=== PATIENT | female | born 1960 | race Caucasian/White ===

== ENCOUNTER 2018-12-15 08:05 | Outpatient (RCR) | payer OTHER | END 2018-12-27 | LOC: M PT 08:05 | PROVIDERS: ATTEND Orthopaedic Surgery Sports Medicine | DX: Z51.89 Encounter for other specified aftercare (principal); M25.571 Pain in right ankle and joints of right foot; R22.41 Localized swelling, mass and lump, right lower limb ==

== ENCOUNTER 2019-01-25 15:14 | Outpatient (RCR) | payer OTHER | END 2019-01-27 | LOC: M PT 15:14 | PROVIDERS: ATTEND Orthopaedic Surgery Sports Medicine | DX: I89.0 Lymphedema, not elsewhere classified (principal) ==

== ENCOUNTER → 2019-02-26 | Outpatient (RCR) | payer OTHER | LOC: M PT 01-30 11:43 | PROVIDERS: ATTEND Orthopaedic Surgery Sports Medicine | DX: Z51.89 Encounter for other specified aftercare (principal); I89.0 Lymphedema, not elsewhere classified ==

== ENCOUNTER 2019-03-28 08:53 | Outpatient (RCR) | payer OTHER | END 2019-03-29 | LOC: M PT 08:53 | PROVIDERS: ATTEND Orthopaedic Surgery Sports Medicine | DX: Z51.89 Encounter for other specified aftercare (principal); I89.0 Lymphedema, not elsewhere classified ==

== ENCOUNTER 2019-04-23 09:01 | Outpatient (RCR) | payer OTHER | END 2019-04-28 | LOC: M PT 09:01 | PROVIDERS: ATTEND Orthopaedic Surgery Sports Medicine | DX: Z51.89 Encounter for other specified aftercare (principal); I89.0 Lymphedema, not elsewhere classified; S82.91XA Unspecified fracture of right lower leg, initial encounter for closed fracture; M25.571 Pain in right ankle and joints of right foot; R60.0 Localized edema; X58.XXXA Exposure to other specified factors, initial encounter; Y92.9 Unspecified place or not applicable; Y93.9 Activity, unspecified; Y99.9 Unspecified external cause status ==

== ENCOUNTER → 2019-05-02 | Outpatient (CLI) | payer OTHER ==
--- NOTE | 2019-05-02 09:36 | REP ---
Clinical: Screening for abdominal aortic aneurysm Technique: Real time yancey scale ultrasound examination using curved array transducer. Findings: The abdominal aorta is normal by sonographic evaluation without significant atherosclerotic changes and no evidence for aneurysm. Proximal aorta: 2.6 x 3.1 cm Aorta and renal arteries: 1.8 x 2.4 cm Mid aorta: 2.0 x 2.2 cm Distal aorta: 2.0 x 2.0 cm Right common iliac artery: 0.9 x 1.4 cm Left common iliac artery: 1.0 x 1.5 cm Impression: Normal abdominal aorta. No aneurysm. Electronically Signed by Huang Cole MD 05/02/2019 09:27 A
== END ==
LOC: M RAD 07:28
PROVIDERS: ATTEND Internal Medicine
DX: Z82.49 Family history of ischemic heart disease and other diseases of the circulatory system (principal)

== ENCOUNTER 2019-05-24 08:12 | Outpatient (RCR) | payer OTHER | END 2019-05-29 | LOC: M PT 08:12 | PROVIDERS: ATTEND Orthopaedic Surgery Sports Medicine | DX: Z47.89 Encounter for other orthopedic aftercare (principal); S82.91XA Unspecified fracture of right lower leg, initial encounter for closed fracture; R60.0 Localized edema; M25.571 Pain in right ankle and joints of right foot; X58.XXXA Exposure to other specified factors, initial encounter; Y92.9 Unspecified place or not applicable; Y93.9 Activity, unspecified; Y99.9 Unspecified external cause status ==

== ENCOUNTER 2019-06-18 09:12 | Outpatient (RCR) | payer OTHER | END 2019-06-29 | LOC: M PT 09:12 | PROVIDERS: ATTEND Orthopaedic Surgery Sports Medicine | DX: S82.891D Other fracture of right lower leg, subsequent encounter for closed fracture with routine healing (principal); M25.571 Pain in right ankle and joints of right foot; M79.89 Other specified soft tissue disorders ==

== ENCOUNTER → 2021-06-29 | Outpatient (RCR) | payer MEDICARE, OTHER | LOC: M PT 06-18 11:12 | PROVIDERS: ATTEND Internal Medicine | DX: I89.0 Lymphedema, not elsewhere classified (principal); I87.2 Venous insufficiency (chronic) (peripheral); M79.89 Other specified soft tissue disorders ==

== ENCOUNTER 2021-07-15 08:30 | Outpatient (RCR) | payer MEDICARE, OTHER | END 2021-07-27 | LOC: M PT 08:30 | PROVIDERS: ATTEND Internal Medicine | DX: I89.0 Lymphedema, not elsewhere classified (principal); I87.2 Venous insufficiency (chronic) (peripheral); M79.89 Other specified soft tissue disorders ==

== ENCOUNTER → 2023-01-18 | Outpatient (CLI) | payer MEDICARE, OTHER ==
[~2023-01-18] MED LIST: LIDOCAINE 1% MDV 20ML VIAL As Ordered ONE
[2023-01-18 12:20] VITALS: BP 121/53; TEMP 98.2; O2SAT 93
== END ==
LOC: M IRPRO 12:09
PROVIDERS: ATTEND Surgery
DX: M86.9 Osteomyelitis, unspecified (principal)
CPT/HCPCS: 36569; C1751

== ENCOUNTER → 2023-01-30 | Outpatient (REF) | payer MEDICARE, OTHER ==
[2023-01-30 13:52] LABS: HEMATOCRIT 31.1 % (36.0-47.0); HEMOGLOBIN 9.5 g/dl (12.0-15.5); MEAN CORPUSCULAR HEMOGLOBIN 26.2 pg (27.0-33.0); MEAN CORPUSCULAR HGB CONC 30.5 g/dl (32.0-36.5); MEAN CORPUSCULAR VOLUME 85.7 fl (80.0-96.0); PLATELET COUNT, AUTOMATED 127 10^3/uL (150-450); RED BLOOD COUNT 3.63 10^6/uL (4.00-5.40); WHITE BLOOD COUNT 4.6 10^3/uL (4.0-10.0)
[2023-01-30 14:11] LABS: ERYTHROCYTE SEDIMENTATION RATE 64 mm/hr (0-30)
[2023-01-30 14:24] LABS: ALBUMIN 3.3 G/DL (3.2-5.2); BILIRUBIN,TOTAL 0.4 MG/DL (0.3-1.2); CALCIUM LEVEL 8.9 MG/DL (8.3-10.6); CREATININE FOR GFR 1.11 MG/DL (0.55-1.30); POTASSIUM SERUM 4.8 MMOL/L (3.5-5.1); TOTAL PROTEIN 7.2 G/DL (5.7-8.2)
== END ==
LOC: M LAB REF 12:45
PROVIDERS: ATTEND Surgery
DX: A41.9 Sepsis, unspecified organism (principal); L03.115 Cellulitis of right lower limb

== ENCOUNTER → 2023-03-22 | Outpatient (REF) | payer MEDICARE, OTHER ==
[~2023-03-22] MED LIST changes: +ATOR40TA75 PO; +BANO25TA PO; +CEFE2INJ2 IV; +CEFE2INJ5 IV; +CETI-24 PO; +CIPR250T3 PO; +DILT1CAP46 PO; +ELIQ5TAB PO; +FURO40TA2 PO; +HYDR200T46 PO; +IRBE300T7 PO; +LEXA1TAB PO; -LIDOCAINE 1% MDV 20ML VIAL As Ordered ONE; +MAGN400T2 PO; +OXYC1TAB23 PO; +XARE20TA PO; +ZYVO1TAB PO
[2023-03-22 18:28] LABS: PERCENT SATURATION 11.4 % (13.2-45.0)
[2023-03-22 18:30] LABS: FERRITIN 104.1 NG/ML (7.3-270.7)
== END ==
LOC: M LAB REF 16:59
PROVIDERS: ATTEND Internal Medicine Nephrology
DX: E61.1 Iron deficiency (principal); R82.81 Pyuria

== ENCOUNTER 2023-09-07 14:44 | Inpatient (IN) | payer MEDICARE, OTHER ==
[2023-09-07] VITALS (17 sets, daily range): BP systolic 69–98; BP diastolic 40–69; TEMP 100.8–102.8; O2SAT 91–96
[~2023-09-07] VITALS: Ht 170.2 cm; Wt 161.5 kg
[~2023-09-07 14:44] MED LIST changes: +IRBE300T25 PO; -IRBE300T7 PO
[2023-09-07] MEDS ORDERED: ISOVUE-370 76% 100ML VIAL As Ordered ONE (15:24)
[2023-09-07] MEDS: ACETAMINOPHEN 500 MG TAB PO ONE (15:24)
[2023-09-07 15:32] LABS: BASO % 0.3 % (0.0-1.0); HEMATOCRIT 35.7 % (36.0-47.0); HEMOGLOBIN 11.2 g/dl (12.0-15.5); LYMPH # 0.4 10^3/uL (1.5-5.0); LYMPH % 4.1 % (24.0-44.0); MEAN CORPUSCULAR HGB CONC 31.4 g/dl (32.0-36.5); MONO # 0.3 10^3/uL (0.0-0.8); MONO % 3.5 % (2.0-8.0); NEUTROPHILS # 8.6 10^3/uL (1.5-8.5); NEUTROPHILS % 91.4 % (36.0-66.0); PLATELET COUNT, AUTOMATED 128 10^3/uL (150-450); WHITE BLOOD COUNT 9.4 10^3/uL (4.0-10.0)
[2023-09-07 15:40] LABS: INR 1.38; PARTIAL THROMBOPLASTIN TIME 30.9 SECONDS (24.8-34.2); PROTHROMBIN TIME 16.6 SECONDS (12.5-14.5)
[2023-09-07 15:50] LABS: ETHYL ALCOHOL (ETHANOL) 0.005 % (0.000-0.010)
[2023-09-07 15:52] LABS: ALBUMIN 3.4 G/DL (3.2-5.2); ALKALINE PHOSPHATASE 72 U/L (46-116); ALT/SGPT 13 U/L (7.0-40); AST/SGOT 28 U/L (<34); BILIRUBIN,DIRECT 0.2 MG/DL (<0.4); BILIRUBIN,TOTAL 0.7 MG/DL (0.3-1.2); BLOOD UREA NITROGEN 33 MG/DL (9-23); CALCIUM LEVEL 8.4 MG/DL (8.3-10.6); CARBON DIOXIDE LEVEL 25 MMOL/L (20-31); CHLORIDE LEVEL 107 MMOL/L (98-107); CREATININE FOR GFR 1.22 MG/DL (0.55-1.30); GLOMERULAR FILTRATION RATE 47.4 (>45); GLUCOSE, FASTING 116 MG/DL (74-106); MAGNESIUM LEVEL 2.1 MG/DL (1.8-2.4); POTASSIUM SERUM 4.6 MMOL/L (3.5-5.1); SALICYLATE LEVEL < 3.0 MG/DL (<30); SODIUM LEVEL 144 MMOL/L (136-145); TOTAL PROTEIN 7.4 G/DL (5.7-8.2)
[2023-09-07 15:54] LABS: THYROID STIMULATING HORMONE 1.617 uIU/ML (0.55-4.78)
[2023-09-07 16:02] LABS: ABG BASE EXCESS -0.5 (-2.0-2.0); ABG HCO3 22.1 MMOL/L (22.0-26.0); ABG O2 SATURATION 95.2 % (95.0-99.0); ABG PARTIAL PRESSURE O2 75.6 mmHg (75.0-100.0); ABG pH (ARTERIAL) 7.485 UNITS (7.350-7.450)
[2023-09-07] MEDS: cefTRIAXone SOD 2 GM in D5W MINI-BAG PLUS 50 ML IV ONE (16:10)
[2023-09-07] MEDS: NS IV ONE (16:10)
[2023-09-07] MEDS: LIDOCAINE 2% 5ML JELLY UROJET TOP ONE (16:55)
[2023-09-07 18:02] LABS: AMPHETAMINES LEVEL URINE NEGATIVE (NEGATIVE); BARBITURATES URINE NEGATIVE (NEGATIVE); BENZODIAZEPINES URINE NEGATIVE (NEGATIVE); CANNABINOIDS URINE NEGATIVE (NEGATIVE); COCAINE METABOLITE URINE NEGATIVE (NEGATIVE); METHADONE URINE NEGATIVE (NEGATIVE); OPIATES URINE NEGATIVE (NEGATIVE); PHENCYCLIDINE URINE NEGATIVE (NEGATIVE)
[2023-09-07] MEDS ORDERED: FURO20TA2 PO (18:03)
[2023-09-07] MEDS ORDERED: MAGN400T2 PO (18:03)
[2023-09-07] MEDS ORDERED: ELIQ5TAB PO (18:03)
[2023-09-07] MEDS ORDERED: GABA-282 PO (18:03)
[2023-09-07] MEDS ORDERED: HOME MED LIST COMPLETE! XX SCH (18:20)
[2023-09-07] MEDS: APIXABAN 5 MG TAB (ELIQUIS) PO SCH (20:30)
[2023-09-07] MEDS: GABAPENTIN 300 MG CAP PO SCH (20:30)
[2023-09-07] MEDS: MAGNESIUM OXIDE 400MG TAB (MAG-OX) PO SCH (20:30)
[2023-09-07] MEDS ORDERED: ENOXAPARIN 40MG/0.4ML SYRINGE (J1650 PER 10MG) SC SCH (21:00)
[2023-09-07] MEDS: NYSTATIN 100,000 UNITS/GM TOPICAL PWD 15GM TOP SCH (21:00)
[2023-09-07] MEDS: ACETAMINOPHEN TAB 650MG DOSE (2X325MG) PO PRN (21:09)
[2023-09-07] MEDS: NOREPINEPHRINE 4MG IN D5 250ML 4 MG in IV 1 EA IV SCH (22:57)
[2023-09-08] VITALS (79 sets, daily range): BP systolic 69–141; BP diastolic 40–87; TEMP 100.2–102.9; O2SAT 91–99
[2023-09-08 04:42] LABS: BASO % 0.2 % (0.0-1.0); HEMATOCRIT 31.1 % (36.0-47.0); HEMOGLOBIN 9.6 g/dl (12.0-15.5); LYMPH # 0.4 10^3/uL (1.5-5.0); LYMPH % 4.4 % (24.0-44.0); MEAN CORPUSCULAR HEMOGLOBIN 25.8 pg (27.0-33.0); MEAN CORPUSCULAR HGB CONC 30.9 g/dl (32.0-36.5); MEAN CORPUSCULAR VOLUME 83.6 fl (80.0-96.0); MONO # 0.4 10^3/uL (0.0-0.8); MONO % 3.7 % (2.0-8.0); NEUTROPHILS # 8.5 10^3/uL (1.5-8.5); NEUTROPHILS % 91.1 % (36.0-66.0); PLATELET COUNT, AUTOMATED 129 10^3/uL (150-450); RED BLOOD COUNT 3.72 10^6/uL (4.00-5.40); WHITE BLOOD COUNT 9.3 10^3/uL (4.0-10.0)
[2023-09-08 05:07] LABS: ALBUMIN 2.8 G/DL (3.2-5.2); BILIRUBIN,TOTAL 0.6 MG/DL (0.3-1.2); CALCIUM LEVEL 7.5 MG/DL (8.3-10.6); CREATININE FOR GFR 1.17 MG/DL (0.55-1.30); GLOMERULAR FILTRATION RATE 49.7 (>45); POTASSIUM SERUM 3.9 MMOL/L (3.5-5.1); TOTAL PROTEIN 6.5 G/DL (5.7-8.2)
[2023-09-08] MEDS: FUROSEMIDE 20 MG TAB PO SCH (07:53)
[2023-09-08] MEDS: ATORVASTATIN 20 MG TAB PO SCH (07:53)
[2023-09-08] MEDS: PANTOPRAZOLE 40MG VIAL IV SCH (07:54)
[2023-09-08] MEDS: dilTIAZem **CD** 180MG CAP PO SCH (08:39)
[2023-09-08] MEDS: NS 1,000 ML IV SCH (11:16)
[2023-09-08] MEDS ORDERED: cefTRIAXone SOD 1 GM in D5W MINI-BAG PLUS 50 ML IV SCH (18:00)
[2023-09-08] MEDS: PIPERACILLIN/TAZOBACTAM SOD 4.5 GM in D5W MINI-BAG PLUS 50 ML IV SCH (18:24)
[2023-09-09] VITALS (62 sets, daily range): BP systolic 72–139; BP diastolic 48–76; TEMP 99–102; O2SAT 89–100
[2023-09-09] MEDS: LR 1,000 ML IV SCH ×2 (04:47→09:27)
[2023-09-09 05:20] LABS: BASO % 0.4 % (0.0-1.0); EOS # 0.2 10^3/uL (0.0-0.5); HEMATOCRIT 28.6 % (36.0-47.0); HEMOGLOBIN 9.1 g/dl (12.0-15.5); LYMPH # 0.6 10^3/uL (1.5-5.0); LYMPH % 7.4 % (24.0-44.0); MEAN CORPUSCULAR HEMOGLOBIN 26.1 pg (27.0-33.0); MEAN CORPUSCULAR HGB CONC 31.8 g/dl (32.0-36.5); MEAN CORPUSCULAR VOLUME 81.9 fl (80.0-96.0); MONO # 0.5 10^3/uL (0.0-0.8); MONO % 6.1 % (2.0-8.0); NEUTROPHILS # 6.6 10^3/uL (1.5-8.5); NEUTROPHILS % 83.2 % (36.0-66.0); PLATELET COUNT, AUTOMATED 143 10^3/uL (150-450); RED BLOOD COUNT 3.49 10^6/uL (4.00-5.40); WHITE BLOOD COUNT 7.9 10^3/uL (4.0-10.0)
[2023-09-09 05:47] LABS: CALCIUM LEVEL 7.7 MG/DL (8.3-10.6); CREATININE FOR GFR 1.05 MG/DL (0.55-1.30); GLOMERULAR FILTRATION RATE 56.3 (>45); POTASSIUM SERUM 4.1 MMOL/L (3.5-5.1)
[2023-09-09] MEDS ORDERED: FLUID PLACE HOLDER IV SCH (20:25)
[2023-09-09] MEDS ORDERED: VANCOMYCIN HCL IV SCH (20:25)
[2023-09-09] MEDS: NS 1,000 ML IV SCH (20:30)
[2023-09-09] MEDS: VANCOMYCIN HCL 1,000 MG, VIAL MATE ADAPTER 1 EACH in D5W 250 ML IV ONE (21:07)
[2023-09-09] MEDS: VANCOMYCIN HCL 1,000 MG, VIAL MATE ADAPTER 1 EACH in D5W 250 ML IV SCH (22:27)
[2023-09-10] VITALS (50 sets, daily range): BP systolic 74–112; BP diastolic 50–81; TEMP 97.4–100.2; O2SAT 92–97
[2023-09-10 05:43] LABS: ALBUMIN 2.1 G/DL (3.2-5.2); ALKALINE PHOSPHATASE 65 U/L (46-116); ALT/SGPT < 9 U/L (7.0-40); AST/SGOT 21 U/L (<34); BILIRUBIN,TOTAL 0.4 MG/DL (0.3-1.2); BLOOD UREA NITROGEN 24 MG/DL (9-23); CALCIUM LEVEL 7.9 MG/DL (8.3-10.6); CARBON DIOXIDE LEVEL 22 MMOL/L (20-31); CHLORIDE LEVEL 106 MMOL/L (98-107); CREATININE FOR GFR 1.03 MG/DL (0.55-1.30); GLOMERULAR FILTRATION RATE 57.6 (>45); GLUCOSE, FASTING 146 MG/DL (74-106); POTASSIUM SERUM 3.9 MMOL/L (3.5-5.1); SODIUM LEVEL 137 MMOL/L (136-145); TOTAL PROTEIN 5.9 G/DL (5.7-8.2)
[2023-09-11] VITALS (14 sets, daily range): BP systolic 81–143; BP diastolic 47–77; TEMP 97.6–100; O2SAT 91–98
[2023-09-11 06:06] LABS: VANCOMYCIN LEVEL TROUGH 23.8 UG/ML (10.0-20.0)
[2023-09-11 07:18] LABS: BASO % 0.3 % (0.0-1.0); EOS # 0.6 10^3/uL (0.0-0.5); HEMATOCRIT 27.8 % (36.0-47.0); HEMOGLOBIN 8.5 g/dl (12.0-15.5); LYMPH % 15.7 % (24.0-44.0); MEAN CORPUSCULAR HEMOGLOBIN 25.8 pg (27.0-33.0); MEAN CORPUSCULAR HGB CONC 30.6 g/dl (32.0-36.5); MEAN CORPUSCULAR VOLUME 84.5 fl (80.0-96.0); MONO # 0.8 10^3/uL (0.0-0.8); MONO % 11.9 % (2.0-8.0); NEUTROPHILS # 3.9 10^3/uL (1.5-8.5); NEUTROPHILS % 62.5 % (36.0-66.0); PLATELET COUNT, AUTOMATED 175 10^3/uL (150-450); RED BLOOD COUNT 3.29 10^6/uL (4.00-5.40); WHITE BLOOD COUNT 6.3 10^3/uL (4.0-10.0)
[2023-09-11 07:26] LABS: CALCIUM LEVEL 7.5 MG/DL (8.3-10.6); CREATININE FOR GFR 1.22 MG/DL (0.55-1.30); GLOMERULAR FILTRATION RATE 47.4 (>45); MAGNESIUM LEVEL 1.9 MG/DL (1.8-2.4); POTASSIUM SERUM 3.8 MMOL/L (3.5-5.1)
[2023-09-11] MEDS ORDERED: VANCOMYCIN HCL 1,000 MG, VIAL MATE ADAPTER 1 EACH in D5W 250 ML IV SCH (18:00)
[2023-09-12] VITALS (8 sets, daily range): BP systolic 86–136; BP diastolic 51–69; TEMP 97.9–99.7; O2SAT 95–98
[2023-09-12 05:09] LABS: CALCIUM LEVEL 7.5 MG/DL (8.3-10.6); CREATININE FOR GFR 1.14 MG/DL (0.55-1.30); GLOMERULAR FILTRATION RATE 51.2 (>45); MAGNESIUM LEVEL 1.9 MG/DL (1.8-2.4); POTASSIUM SERUM 3.4 MMOL/L (3.5-5.1)
[2023-09-12] MEDS: PANTOPRAZOLE 40MG TAB (PROTONIX) PO SCH (08:09)
[2023-09-12] MEDS: VANCOMYCIN HCL 1,000 MG, VIAL MATE ADAPTER 1 EACH in D5W 250 ML IV SCH (08:10)
[2023-09-12] MEDS: KCL 10MEQ/100ML SWI (KRUN) 10 MEQ in IV 1 EA IV SCH (21:30)
[2023-09-13 04:17] VITALS: BP 103/59; TEMP 99.1; O2SAT 93
[2023-09-13 06:03] LABS: CALCIUM LEVEL 8.1 MG/DL (8.3-10.6); CREATININE FOR GFR 1.14 MG/DL (0.55-1.30); GLOMERULAR FILTRATION RATE 51.2 (>45); MAGNESIUM LEVEL 1.9 MG/DL (1.8-2.4); POTASSIUM SERUM 3.4 MMOL/L (3.5-5.1)
[2023-09-13 07:42] VITALS: BP 127/69; TEMP 98.2; O2SAT 94
[2023-09-13] MEDS ORDERED: BACT800T5 PO (09:26)
[2023-09-13] MEDS ORDERED: BACI1CAP PO (09:26)
[2023-09-13 10:11] LABS: HEMATOCRIT 30.8 % (36.0-47.0); HEMOGLOBIN 9.4 g/dl (12.0-15.5)
[2023-09-13 10:29] LABS: PERCENT SATURATION 6.3 % (13.2-45.0)
[2023-09-13 10:33] LABS: FERRITIN 210.3 NG/ML (7.3-270.7)
[2023-09-13] MEDS: MAG SULF 1GM/100ML (MAG RUN) 1 GM in IV 1 EA IV ONE (10:34)
[2023-09-13 10:35] VITALS: BP 127/69
[2023-09-13] MEDS: POTASSIUM CHLORIDE 10MEQ SR TABLET PO ONE (10:36)
[2023-09-13 10:38] LABS: PROCALCITONIN 0.6 ng/ml
== END 2023-09-13 13:29 | disposition home or self-care (01) | DRG 853 ==
LOC: M ED 14:44 → M ED INP 18:34 → ENRESERV 19:19 → M ICU 20:05 → M PCU 09-12 15:28
PROVIDERS: ADMIT Internal Medicine Pulmonary Disease; ATTEND General Practice
PROC: 0YB90ZZ Excision of Right Lower Extremity, Open Approach (ICD-10-PCS; principal; 2023-09-08)
DX: A41.9 Sepsis, unspecified organism (principal); G93.41 Metabolic encephalopathy; R65.21 Severe sepsis with septic shock; N39.0 Urinary tract infection, site not specified; Z68.43 Body mass index [BMI] 50.0-59.9, adult; E87.20 Acidosis, unspecified; L97.419 Non-pressure chronic ulcer of right heel and midfoot with unspecified severity; M32.9 Systemic lupus erythematosus, unspecified; I89.0 Lymphedema, not elsewhere classified; I10 Essential (primary) hypertension; E78.5 Hyperlipidemia, unspecified; B96.20 Unspecified Escherichia coli [E. coli] as the cause of diseases classified elsewhere; E66.01 Morbid (severe) obesity due to excess calories; E87.6 Hypokalemia; Z86.73 Personal history of transient ischemic attack (TIA), and cerebral infarction without residual deficits; Z86.718 Personal history of other venous thrombosis and embolism; I87.8 Other specified disorders of veins; Z88.8 Allergy status to other drugs, medicaments and biological substances; Z79.899 Other long term (current) drug therapy; Z79.01 Long term (current) use of anticoagulants; Z89.422 Acquired absence of other left toe(s)

== ENCOUNTER 2023-11-02 15:11 | Inpatient (IN) | payer MEDICARE, OTHER ==
[~2023-11-02] VITALS: Ht 167.6 cm; Wt 164.4 kg
[~2023-11-02 15:11] MED LIST changes: +BACI1CAP PO; +BACT800T5 PO; -DILT1CAP46 PO; +DILT360C22 PO; +FURO20TA2 PO; +GABA-282 PO
[2023-11-02] MEDS ORDERED: VANCOMYCIN HCL 2,000 MG in D5W 500 ML IV ONE (15:45)
[2023-11-02] MEDS: NS IV STA (15:52)
[2023-11-02] MEDS: ACETAMINOPHEN 650MG SUPP PR ONE (15:52)
[2023-11-02] MEDS: PIPERACILLIN/TAZOBACTAM SOD 4.5 GM in D5W MINI-BAG PLUS 50 ML IV ONE (15:52)
[2023-11-02 16:03] LABS: ALBUMIN 2.8 G/DL (3.2-5.2); ALKALINE PHOSPHATASE 73 U/L (46-116); ALT/SGPT < 9 U/L (7.0-40); AMYLASE 34 U/L (30-118); AST/SGOT 15 U/L (<34); BILIRUBIN,DIRECT 0.3 MG/DL (<0.4); BILIRUBIN,TOTAL 0.7 MG/DL (0.3-1.2); BLOOD UREA NITROGEN 24 MG/DL (9-23); CALCIUM LEVEL 8.1 MG/DL (8.3-10.6); CARBON DIOXIDE LEVEL 26 MMOL/L (20-31); CHLORIDE LEVEL 107 MMOL/L (98-107); CREATININE FOR GFR 1.15 MG/DL (0.55-1.30); GLOMERULAR FILTRATION RATE 50.7 (>45); GLUCOSE, FASTING 133 MG/DL (74-106); SODIUM LEVEL 140 MMOL/L (136-145); TOTAL PROTEIN 7.4 G/DL (5.7-8.2)
[2023-11-02 16:05] LABS: BASO % 0.2 % (0.0-1.0); HEMATOCRIT 29.5 % (36.0-47.0); HEMOGLOBIN 8.8 g/dl (12.0-15.5); LYMPH # 0.3 10^3/uL (1.5-5.0); LYMPH % 2.5 % (24.0-44.0); MEAN CORPUSCULAR HEMOGLOBIN 25.2 pg (27.0-33.0); MEAN CORPUSCULAR HGB CONC 29.8 g/dl (32.0-36.5); MEAN CORPUSCULAR VOLUME 84.5 fl (80.0-96.0); MONO # 0.4 10^3/uL (0.0-0.8); MONO % 3.2 % (2.0-8.0); NEUTROPHILS # 11.8 10^3/uL (1.5-8.5); NEUTROPHILS % 93.5 % (36.0-66.0); PLATELET COUNT, AUTOMATED 173 10^3/uL (150-450); RED BLOOD COUNT 3.49 10^6/uL (4.00-5.40); WHITE BLOOD COUNT 12.7 10^3/uL (4.0-10.0)
[2023-11-02 16:10] LABS: PROCALCITONIN 2.87 ng/ml
[2023-11-02 16:16] LABS: INR 1.49; PARTIAL THROMBOPLASTIN TIME 35.5 SECONDS (24.8-34.2); PROTHROMBIN TIME 17.6 SECONDS (12.5-14.5)
[2023-11-02 16:22] LABS: ABG HCO3 22.3 MMOL/L (22.0-26.0); ABG O2 SATURATION 92.6 % (95.0-99.0); ABG PARTIAL PRESSURE CO2 32.2 mmHg (35.0-45.0); ABG PARTIAL PRESSURE O2 64.9 mmHg (75.0-100.0); ABG STANDARD HCO3 23.6 MMOL/L. (22.0-26.0); ABG TOTAL CO2 23.3 MMOL/L (23.0-31.0); ABG pH (ARTERIAL) 7.459 UNITS (7.350-7.450)
[2023-11-02] MEDS: NS IV ONE (16:25)
[2023-11-02 16:29] LABS: APPEARANCE, URINE HAZY (CLEAR); BACTERIA, URINE AUTO 3+ (NEGATIVE); BILIRUBIN, URINE AUTO NEGATIVE (NEGATIVE); BLOOD, URINE BLOOD 1+ (NEGATIVE); COLOR, URINE YELLOW (YELLOW); GLUCOSE, URINE (UA) AUTO NEGATIVE (NEGATIVE); KETONE, URINE AUTO NEGATIVE (NEGATIVE); LEUKOCYTE ESTERASE, URINE AUTO 2+ (NEGATIVE); NITRITE, URINE AUTO NEGATIVE (NEGATIVE); PROTEIN, URINE AUTO 2+ mg/dL (NEGATIVE); RBC, URINE AUTO 3 /HPF (0-3); SPECIFIC GRAVITY URINE AUTO 1.016 (1.002-1.035); SQUAMOUS EPITHELIAL CELL UR AU 1 /HPF (0-6); UROBILINOGEN, URINE AUTO 0.2 mg/dL (0.0-2.0); WBC, URINE AUTO 73 /HPF (0-3)
[2023-11-02] MEDS: VANCOMYCIN HCL 1,000 MG, VIAL MATE ADAPTER 1 EACH in D5W 250 ML IV ONE ×2 (16:42→18:34)
[2023-11-02] MEDS ORDERED: HEPARIN SOD (PORCINE) 5000UNITS/ML 1ML VIAL/SYRINGE SC SCH (19:15)
[2023-11-02] MEDS ORDERED: VANCOMYCIN HCL 500 MG in D5W MINI-BAG PLUS 100 ML IV SCH (19:15)
[2023-11-02] MEDS ORDERED: LEXA1TAB PO (19:21)
[2023-11-02] MEDS ORDERED: NYST1POW9 TOP (19:21)
[2023-11-02] MEDS ORDERED: HOME MED LIST COMPLETE! XX SCH (19:25)
[2023-11-02] MEDS: APIXABAN 5 MG TAB (ELIQUIS) PO SCH (21:05)
[2023-11-02] MEDS: PIPERACILLIN/TAZOBACTAM SOD 3.375 GM in D5W MINI-BAG PLUS 50 ML IV SCH (21:05)
[2023-11-02 22:22] VITALS: BP 136/76; TEMP 98.4; O2SAT 92
[2023-11-03] MEDS: VANCOMYCIN HCL 750 MG, VIAL MATE ADAPTER 1 EACH in D5W 250 ML IV SCH ×4 (01:12→16:34)
[2023-11-03 04:58] VITALS: BP 140/60; TEMP 99; O2SAT 94
[2023-11-03 07:01] LABS: HEMATOCRIT 26.7 % (36.0-47.0); HEMOGLOBIN 7.9 g/dl (12.0-15.5); MEAN CORPUSCULAR HEMOGLOBIN 25.2 pg (27.0-33.0); MEAN CORPUSCULAR HGB CONC 29.6 g/dl (32.0-36.5); MEAN CORPUSCULAR VOLUME 85.3 fl (80.0-96.0); PLATELET COUNT, AUTOMATED 149 10^3/uL (150-450); RED BLOOD COUNT 3.13 10^6/uL (4.00-5.40); WHITE BLOOD COUNT 9.3 10^3/uL (4.0-10.0)
[2023-11-03 07:31] LABS: ALBUMIN 2.3 G/DL (3.2-5.2); ALKALINE PHOSPHATASE 61 U/L (46-116); ALT/SGPT < 9 U/L (7.0-40); AST/SGOT 9 U/L (<34); BILIRUBIN,TOTAL 0.7 MG/DL (0.3-1.2); BLOOD UREA NITROGEN 26 MG/DL (9-23); CALCIUM LEVEL 7.6 MG/DL (8.3-10.6); CARBON DIOXIDE LEVEL 24 MMOL/L (20-31); CHLORIDE LEVEL 108 MMOL/L (98-107); GLOMERULAR FILTRATION RATE 53.4 (>45); GLUCOSE, FASTING 107 MG/DL (74-106); POTASSIUM SERUM 3.7 MMOL/L (3.5-5.1); SODIUM LEVEL 139 MMOL/L (136-145); TOTAL PROTEIN 6.5 G/DL (5.7-8.2)
[2023-11-03] MEDS: ATORVASTATIN 20 MG TAB PO SCH (09:05)
[2023-11-03 12:10] VITALS: BP 118/64; TEMP 97.9; O2SAT 93
[2023-11-03 16:00] VITALS: BP 100/60; TEMP 98.1; O2SAT 94
[2023-11-03 20:55] VITALS: BP 111/62; TEMP 98.1; O2SAT 91
[2023-11-04] MEDS: ACETAMINOPHEN TAB 650MG DOSE (2X325MG) PO PRN (03:06)
[2023-11-04 05:05] VITALS: BP 103/63; TEMP 97.7; O2SAT 94
[2023-11-04 08:40] LABS: BASO % 0.5 % (0.0-1.0); EOS # 0.3 10^3/uL (0.0-0.5); EOS % 4.8 % (0.0-3.0); HEMATOCRIT 26.9 % (36.0-47.0); LYMPH # 0.7 10^3/uL (1.5-5.0); LYMPH % 12.1 % (24.0-44.0); MEAN CORPUSCULAR HEMOGLOBIN 25.2 pg (27.0-33.0); MEAN CORPUSCULAR HGB CONC 29.7 g/dl (32.0-36.5); MEAN CORPUSCULAR VOLUME 84.6 fl (80.0-96.0); MONO # 0.5 10^3/uL (0.0-0.8); MONO % 7.9 % (2.0-8.0); NEUTROPHILS # 4.2 10^3/uL (1.5-8.5); NEUTROPHILS % 74.5 % (36.0-66.0); PLATELET COUNT, AUTOMATED 159 10^3/uL (150-450); RED BLOOD COUNT 3.18 10^6/uL (4.00-5.40); WHITE BLOOD COUNT 5.7 10^3/uL (4.0-10.0)
[2023-11-04 09:05] LABS: VANCOMYCIN RANDOM 18.3 UG/ML
[2023-11-04 09:06] LABS: ALBUMIN 2.2 G/DL (3.2-5.2); BILIRUBIN,TOTAL 0.4 MG/DL (0.3-1.2); CREATININE FOR GFR 1.06 MG/DL (0.55-1.30); GLOMERULAR FILTRATION RATE 55.7 (>45); POTASSIUM SERUM 3.6 MMOL/L (3.5-5.1); TOTAL PROTEIN 6.4 G/DL (5.7-8.2)
[2023-11-04] MEDS: MEROPENEM INJ 1 GM in IV 1 EA IV SCH (10:10)
[2023-11-04 12:10] VITALS: BP 111/65; TEMP 98; O2SAT 95
[2023-11-04] MEDS: ESCITALOPRAM OXALATE 10 MG TAB (LEXAPRO) PO SCH (18:01)
[2023-11-04] MEDS: FUROSEMIDE 40 MG TAB PO SCH (18:01)
[2023-11-04 20:00] VITALS: BP 133/82; TEMP 97.5; O2SAT 94
[2023-11-04] MEDS: MAGNESIUM OXIDE 400MG TAB (MAG-OX) PO SCH (21:09)
[2023-11-04] MEDS: NYSTATIN 100,000 UNITS/GM TOPICAL PWD 15GM TOP SCH (21:09)
[2023-11-04] MEDS: GABAPENTIN 300 MG CAP PO SCH (21:09)
[2023-11-04] MEDS: HYDROXYCHLOROQUINE 200 MG TAB PO SCH (21:09)
[2023-11-05 04:00] VITALS: BP 137/85; TEMP 98.1; O2SAT 93
[2023-11-05 06:38] LABS: BASO % 0.5 % (0.0-1.0); EOS # 0.3 10^3/uL (0.0-0.5); EOS % 7.2 % (0.0-3.0); HEMATOCRIT 27.7 % (36.0-47.0); HEMOGLOBIN 8.3 g/dl (12.0-15.5); LYMPH # 0.7 10^3/uL (1.5-5.0); LYMPH % 16.8 % (24.0-44.0); MEAN CORPUSCULAR HEMOGLOBIN 25.2 pg (27.0-33.0); MEAN CORPUSCULAR VOLUME 83.9 fl (80.0-96.0); MONO # 0.4 10^3/uL (0.0-0.8); MONO % 10.3 % (2.0-8.0); NEUTROPHILS # 2.8 10^3/uL (1.5-8.5); NEUTROPHILS % 64.3 % (36.0-66.0); PLATELET COUNT, AUTOMATED 183 10^3/uL (150-450); WHITE BLOOD COUNT 4.3 10^3/uL (4.0-10.0)
[2023-11-05 06:53] LABS: BLOOD UREA NITROGEN 20 MG/DL (9-23); CALCIUM LEVEL 7.9 MG/DL (8.3-10.6); CARBON DIOXIDE LEVEL 26 MMOL/L (20-31); CHLORIDE LEVEL 110 MMOL/L (98-107); CREATININE FOR GFR 0.95 MG/DL (0.55-1.30); GLOMERULAR FILTRATION RATE > 60.0 (>45); GLUCOSE, FASTING 92 MG/DL (74-106); MAGNESIUM LEVEL 1.9 MG/DL (1.8-2.4); POTASSIUM SERUM 3.5 MMOL/L (3.5-5.1); SODIUM LEVEL 143 MMOL/L (136-145)
[2023-11-05 12:00] VITALS: BP 118/66; TEMP 96.8; O2SAT 94
[2023-11-05] MEDS: FUROSEMIDE 40MG/4ML VIAL IV SCH (17:11)
[2023-11-05 20:00] VITALS: BP 124/68; TEMP 97.7; O2SAT 97
[2023-11-05] MEDS: POTASSIUM CHLORIDE 10MEQ SR TABLET PO SCH (20:41)
[2023-11-06 04:00] VITALS: BP 127/72; TEMP 97.7; O2SAT 94
[2023-11-06 08:10] LABS: BASO % 0.7 % (0.0-1.0); EOS # 0.3 10^3/uL (0.0-0.5); EOS % 6.5 % (0.0-3.0); HEMATOCRIT 29.4 % (36.0-47.0); HEMOGLOBIN 8.7 g/dl (12.0-15.5); LYMPH # 0.9 10^3/uL (1.5-5.0); LYMPH % 19.2 % (24.0-44.0); MEAN CORPUSCULAR HEMOGLOBIN 24.6 pg (27.0-33.0); MEAN CORPUSCULAR HGB CONC 29.6 g/dl (32.0-36.5); MEAN CORPUSCULAR VOLUME 83.3 fl (80.0-96.0); MONO # 0.5 10^3/uL (0.0-0.8); NEUTROPHILS # 2.7 10^3/uL (1.5-8.5); NEUTROPHILS % 60.3 % (36.0-66.0); PLATELET COUNT, AUTOMATED 200 10^3/uL (150-450); RED BLOOD COUNT 3.53 10^6/uL (4.00-5.40); WHITE BLOOD COUNT 4.5 10^3/uL (4.0-10.0)
[2023-11-06 08:42] LABS: BLOOD UREA NITROGEN 17 MG/DL (9-23); CALCIUM LEVEL 7.9 MG/DL (8.3-10.6); CARBON DIOXIDE LEVEL 26 MMOL/L (20-31); CHLORIDE LEVEL 108 MMOL/L (98-107); CREATININE FOR GFR 0.93 MG/DL (0.55-1.30); GLOMERULAR FILTRATION RATE > 60.0 (>45); GLUCOSE, FASTING 97 MG/DL (74-106); MAGNESIUM LEVEL 1.7 MG/DL (1.8-2.4); POTASSIUM SERUM 3.7 MMOL/L (3.5-5.1); SODIUM LEVEL 142 MMOL/L (136-145)
[2023-11-06 12:00] VITALS: BP 113/59; TEMP 97.2; O2SAT 94
[2023-11-06] MEDS: MAG SULF 1GM/100ML (MAG RUN) 1 GM in IV 1 EA IV SCH (13:02)
[2023-11-06] MEDS: LACTOBACILLUS ACIDOPHILUS CAP (BACID) PO SCH (18:11)
[2023-11-06 21:43] VITALS: BP 115/60; TEMP 98.6; O2SAT 98
[2023-11-07 05:12] VITALS: BP 116/64; TEMP 97.9; O2SAT 95
[2023-11-07 06:18] LABS: BASO % 0.8 % (0.0-1.0); EOS # 0.4 10^3/uL (0.0-0.5); HEMATOCRIT 28.2 % (36.0-47.0); HEMOGLOBIN 8.2 g/dl (12.0-15.5); LYMPH % 19.1 % (24.0-44.0); MEAN CORPUSCULAR HEMOGLOBIN 24.5 pg (27.0-33.0); MEAN CORPUSCULAR HGB CONC 29.1 g/dl (32.0-36.5); MEAN CORPUSCULAR VOLUME 84.2 fl (80.0-96.0); MONO # 0.6 10^3/uL (0.0-0.8); MONO % 10.7 % (2.0-8.0); NEUTROPHILS # 3.1 10^3/uL (1.5-8.5); NEUTROPHILS % 59.5 % (36.0-66.0); PLATELET COUNT, AUTOMATED 183 10^3/uL (150-450); RED BLOOD COUNT 3.35 10^6/uL (4.00-5.40); WHITE BLOOD COUNT 5.2 10^3/uL (4.0-10.0)
[2023-11-07 06:48] LABS: BLOOD UREA NITROGEN 14 MG/DL (9-23); CALCIUM LEVEL 7.8 MG/DL (8.3-10.6); CARBON DIOXIDE LEVEL 27 MMOL/L (20-31); CHLORIDE LEVEL 109 MMOL/L (98-107); GLOMERULAR FILTRATION RATE > 60.0 (>45); GLUCOSE, FASTING 96 MG/DL (74-106); MAGNESIUM LEVEL 1.9 MG/DL (1.8-2.4); POTASSIUM SERUM 4.1 MMOL/L (3.5-5.1); SODIUM LEVEL 143 MMOL/L (136-145)
[2023-11-07] MEDS ORDERED: POTA10CA70 PO (10:59)
[2023-11-07 12:10] VITALS: BP 112/66; TEMP 98; O2SAT 95
== END 2023-11-07 15:25 | disposition expired | DRG 871 ==
LOC: EDBD 15:11 → M ED 15:11 → EEVIPCON 19:12 → M ED INP 19:12 → M MS5PR 22:20 → UNDODISIN 11-07 15:25
PROVIDERS: ADMIT Hospitalist; ATTEND Hospitalist
DX: A41.9 Sepsis, unspecified organism (principal); G93.41 Metabolic encephalopathy; J18.9 Pneumonia, unspecified organism; N39.0 Urinary tract infection, site not specified; Z66 Do not resuscitate; E66.01 Morbid (severe) obesity due to excess calories; I10 Essential (primary) hypertension; E78.5 Hyperlipidemia, unspecified; F32.A Depression, unspecified; G62.9 Polyneuropathy, unspecified; M32.9 Systemic lupus erythematosus, unspecified; I89.0 Lymphedema, not elsewhere classified; I73.9 Peripheral vascular disease, unspecified; Z89.422 Acquired absence of other left toe(s); Z86.718 Personal history of other venous thrombosis and embolism; Z86.73 Personal history of transient ischemic attack (TIA), and cerebral infarction without residual deficits; Z79.01 Long term (current) use of anticoagulants; Z79.899 Other long term (current) drug therapy; Z88.8 Allergy status to other drugs, medicaments and biological substances

== ENCOUNTER 2023-12-02 18:02 | Inpatient (IN) | payer MEDICARE, OTHER ==
[~2023-12-02] VITALS: Ht 167.6 cm; Wt 162.0 kg
[~2023-12-02 18:02] MED LIST changes: +NYST1POW9 TOP; +POTA10CA70 PO
[2023-12-02] MEDS: NS 1,000 ML IV ONE ×2 (18:42→20:32)
[2023-12-02] MEDS: ACETAMINOPHEN *IV* 1,000 MG in IV 1 EA IV ONE (18:42)
[2023-12-02] MEDS: PIPERACILLIN/TAZOBACTAM SOD 4.5 GM in D5W MINI-BAG PLUS 50 ML IV ONE (18:43)
[2023-12-02 18:48] LABS: ABG BASE EXCESS -2.7 (-2.0-2.0); ABG HCO3 21.8 MMOL/L (22.0-26.0); ABG O2 SATURATION 91.8 % (95.0-99.0); ABG PARTIAL PRESSURE CO2 36.8 mmHg (35.0-45.0); ABG PARTIAL PRESSURE O2 67.4 mmHg (75.0-100.0); ABG STANDARD HCO3 22.1 MMOL/L. (22.0-26.0); ABG TOTAL CO2 22.9 MMOL/L (23.0-31.0)
[2023-12-02 19:11] LABS: ETHYL ALCOHOL (ETHANOL) < 0.003 % (0.000-0.010)
[2023-12-02 19:14] LABS: THYROID STIMULATING HORMONE 4.524 uIU/ML (0.55-4.78)
[2023-12-02 19:17] LABS: BASO # 0.1 10^3/uL (0.0-0.2); BASO % 0.5 % (0.0-1.0); EOS % 0.2 % (0.0-3.0); HEMATOCRIT 34.5 % (36.0-47.0); HEMOGLOBIN 9.9 g/dl (12.0-15.5); LYMPH # 0.6 10^3/uL (1.5-5.0); LYMPH % 5.4 % (24.0-44.0); MEAN CORPUSCULAR HEMOGLOBIN 24.2 pg (27.0-33.0); MEAN CORPUSCULAR HGB CONC 28.7 g/dl (32.0-36.5); MEAN CORPUSCULAR VOLUME 84.4 fl (80.0-96.0); MONO # 0.6 10^3/uL (0.0-0.8); MONO % 5.1 % (2.0-8.0); NEUTROPHILS # 10.3 10^3/uL (1.5-8.5); NEUTROPHILS % 88.2 % (36.0-66.0); RED BLOOD COUNT 4.09 10^6/uL (4.00-5.40); WHITE BLOOD COUNT 11.7 10^3/uL (4.0-10.0)
[2023-12-02 19:19] LABS: ALBUMIN 3.2 G/DL (3.2-5.2); ALKALINE PHOSPHATASE 93 U/L (46-116); ALT/SGPT 11 U/L (7.0-40); AST/SGOT 42 U/L (<34); BILIRUBIN,DIRECT 0.2 MG/DL (<0.4); BILIRUBIN,TOTAL 0.7 MG/DL (0.3-1.2); BLOOD UREA NITROGEN 17 MG/DL (9-23); CALCIUM LEVEL 8.4 MG/DL (8.3-10.6); CARBON DIOXIDE LEVEL 26 MMOL/L (20-31); CHLORIDE LEVEL 105 MMOL/L (98-107); CK-MB VALUE MASS < 1.0 NG/ML (<3.6); CPK CREATINE PHOSPHOKINASE 57 U/L (34-145); CREATININE FOR GFR 1.06 MG/DL (0.55-1.30); GLOMERULAR FILTRATION RATE 55.7 (>45); GLUCOSE, FASTING 136 MG/DL (74-106); MB/CK RELATIVE INDEX 1.75 (< OR =4); POTASSIUM SERUM 5.5 MMOL/L (3.5-5.1); SODIUM LEVEL 138 MMOL/L (136-145); TOTAL PROTEIN 8.6 G/DL (5.7-8.2)
[2023-12-02 19:20] LABS: PLATELET COUNT, AUTOMATED 215 10^3/uL (150-450)
[2023-12-02 19:22] LABS: INR 1.69; PARTIAL THROMBOPLASTIN TIME 44.1 SECONDS (24.8-34.2); PROTHROMBIN TIME 19.4 SECONDS (12.5-14.5)
[2023-12-02 21:07] LABS: CK-MB VALUE MASS < 1.0 NG/ML (<3.6)
[2023-12-02 21:08] LABS: CPK CREATINE PHOSPHOKINASE 32 U/L (34-145); MB/CK RELATIVE INDEX 3.12 (< OR =4)
[2023-12-02 21:14] LABS: POTASSIUM SERUM 4.2 MMOL/L (3.5-5.1)
[2023-12-02] MEDS ORDERED: POTA10CA70 PO (21:59)
[2023-12-02] MEDS ORDERED: HOME MED LIST COMPLETE! XX SCH (22:00)
[2023-12-02] MEDS ORDERED: MOM 30ML SUSPENSION UDC PO PRN (22:10)
[2023-12-02] MEDS ORDERED: VANCOMYCIN HCL 1,000 MG, VIAL MATE ADAPTER 1 EACH in NS 250 ML IV SCH (22:40)
[2023-12-02] MEDS: NS 1,000 ML IV SCH (22:50)
[2023-12-02 23:30] VITALS: BP 89/65; TEMP 102.9; O2SAT 100
[2023-12-02 23:45] VITALS: BP 83/65; O2SAT 100
[2023-12-02 23:51] VITALS: O2SAT 100
[2023-12-02] MEDS: ACETAMINOPHEN TAB 650MG DOSE (2X325MG) PO PRN (23:53)
[2023-12-02] MEDS: PIPERACILLIN/TAZOBACTAM SOD 4.5 GM in D5W MINI-BAG PLUS 50 ML IV SCH (23:53)
[2023-12-02 23:57] VITALS: O2SAT 85
[2023-12-03] VITALS (83 sets, daily range): BP systolic 69–126; BP diastolic 47–76; TEMP 99–102.1; O2SAT 84–100
[2023-12-03] MEDS: SODIUM CHLORIDE 0.9% 1000ML IV STA (01:08)
[2023-12-03] MEDS: VANCOMYCIN HCL 1,000 MG, VIAL MATE ADAPTER 1 EACH in D5W 250 ML IV ONE ×2 (01:35→02:46)
[2023-12-03] MEDS: NOREPINEPHRINE 4MG IN D5 250ML 4 MG in IV 1 EA IV SCH (01:47)
[2023-12-03] MEDS: LEVALBUTEROL 1.25MG 0.5ML CONCENTRATE NEB INH SCH (02:52)
[2023-12-03 05:17] LABS: HEMATOCRIT 28.3 % (36.0-47.0); HEMOGLOBIN 8.2 g/dl (12.0-15.5); MEAN CORPUSCULAR HEMOGLOBIN 24.7 pg (27.0-33.0); MEAN CORPUSCULAR VOLUME 85.2 fl (80.0-96.0); PLATELET COUNT, AUTOMATED 170 10^3/uL (150-450); RED BLOOD COUNT 3.32 10^6/uL (4.00-5.40); WHITE BLOOD COUNT 15.1 10^3/uL (4.0-10.0)
[2023-12-03 06:24] LABS: ALBUMIN 2.5 G/DL (3.2-5.2); ALKALINE PHOSPHATASE 75 U/L (46-116); ALT/SGPT < 9 U/L (7.0-40); AST/SGOT 14 U/L (<34); BLOOD UREA NITROGEN 19 MG/DL (9-23); CALCIUM LEVEL 7.3 MG/DL (8.3-10.6); CARBON DIOXIDE LEVEL 24 MMOL/L (20-31); CHLORIDE LEVEL 109 MMOL/L (98-107); CREATININE FOR GFR 1.11 MG/DL (0.55-1.30); GLOMERULAR FILTRATION RATE 52.8 (>45); GLUCOSE, FASTING 124 MG/DL (74-106); POTASSIUM SERUM 4.2 MMOL/L (3.5-5.1); SODIUM LEVEL 139 MMOL/L (136-145); TOTAL PROTEIN 6.8 G/DL (5.7-8.2)
[2023-12-03 06:33] LABS: PROCALCITONIN 2.29 ng/ml
[2023-12-03] MEDS: DOCUSATE SODIUM 100MG CAPSULE PO SCH (08:55)
[2023-12-03] MEDS: MAGNESIUM OXIDE 400MG TAB (MAG-OX) PO SCH (08:56)
[2023-12-03] MEDS: POTASSIUM CHLORIDE 10MEQ SR TABLET PO SCH (08:56)
[2023-12-03] MEDS: APIXABAN 5 MG TAB (ELIQUIS) PO SCH (08:56)
[2023-12-03] MEDS: ATORVASTATIN 20 MG TAB PO SCH (08:56)
[2023-12-03] MEDS: dilTIAZem **CD** 180MG CAP PO SCH (09:00)
[2023-12-03] MEDS: PANTOPRAZOLE 40MG TAB (PROTONIX) PO SCH (12:09)
[2023-12-03] MEDS: VANCOMYCIN HCL 750 MG, VIAL MATE ADAPTER 1 EACH in D5W 250 ML IV SCH ×2 (13:23→14:41)
[2023-12-04] VITALS (36 sets, daily range): BP systolic 78–123; BP diastolic 51–68; TEMP 97.8–102.5; O2SAT 55–100
[2023-12-04 05:58] LABS: HEMATOCRIT 25.9 % (36.0-47.0); HEMOGLOBIN 7.3 g/dl (12.0-15.5); MEAN CORPUSCULAR HEMOGLOBIN 24.1 pg (27.0-33.0); MEAN CORPUSCULAR HGB CONC 28.2 g/dl (32.0-36.5); MEAN CORPUSCULAR VOLUME 85.5 fl (80.0-96.0); PLATELET COUNT, AUTOMATED 152 10^3/uL (150-450); RED BLOOD COUNT 3.03 10^6/uL (4.00-5.40); WHITE BLOOD COUNT 6.8 10^3/uL (4.0-10.0)
[2023-12-04 06:17] LABS: ALBUMIN 2.4 G/DL (3.2-5.2); ALKALINE PHOSPHATASE 61 U/L (46-116); ALT/SGPT < 9 U/L (7.0-40); AST/SGOT 10 U/L (<34); BILIRUBIN,TOTAL 0.6 MG/DL (0.3-1.2); BLOOD UREA NITROGEN 17 MG/DL (9-23); CALCIUM LEVEL 7.8 MG/DL (8.3-10.6); CARBON DIOXIDE LEVEL 26 MMOL/L (20-31); CHLORIDE LEVEL 110 MMOL/L (98-107); CREATININE FOR GFR 1.21 MG/DL (0.55-1.30); GLOMERULAR FILTRATION RATE 47.8 (>45); GLUCOSE, FASTING 103 MG/DL (74-106); POTASSIUM SERUM 3.9 MMOL/L (3.5-5.1); SODIUM LEVEL 139 MMOL/L (136-145); TOTAL PROTEIN 6.7 G/DL (5.7-8.2)
[2023-12-04 06:39] LABS: ANISOCYTOSIS 1+; EOSINOPHILS 5 % (0-3); LYMPHOCYTES 8 % (16-44); MONOCYTES 4 % (0-5); NEUTROPHILS 83 % (28-66); PLATELET ESTIMATE NORMAL (NORMAL); POIKILOCYTOSIS 1+; POLYCHROMASIA 1+
[2023-12-04 06:40] LABS: HYPOCHROMASIA 1+
[2023-12-04] MEDS: FUROSEMIDE 40MG/4ML VIAL IV SCH (08:47)
[2023-12-04] MEDS: LEVALBUTEROL 1.25MG 0.5ML CONCENTRATE NEB INH SCH (14:46)
[2023-12-05 03:25] VITALS: BP 107/54; TEMP 97.6; O2SAT 95
[2023-12-05 05:26] LABS: BASO % 0.4 % (0.0-1.0); EOS # 0.6 10^3/uL (0.0-0.5); EOS % 11.2 % (0.0-3.0); HEMATOCRIT 26.5 % (36.0-47.0); HEMOGLOBIN 7.5 g/dl (12.0-15.5); LYMPH # 0.6 10^3/uL (1.5-5.0); LYMPH % 11.2 % (24.0-44.0); MEAN CORPUSCULAR HEMOGLOBIN 23.7 pg (27.0-33.0); MEAN CORPUSCULAR HGB CONC 28.3 g/dl (32.0-36.5); MEAN CORPUSCULAR VOLUME 83.6 fl (80.0-96.0); MONO # 0.6 10^3/uL (0.0-0.8); MONO % 10.1 % (2.0-8.0); NEUTROPHILS # 3.6 10^3/uL (1.5-8.5); NEUTROPHILS % 66.5 % (36.0-66.0); PLATELET COUNT, AUTOMATED 150 10^3/uL (150-450); RED BLOOD COUNT 3.17 10^6/uL (4.00-5.40); WHITE BLOOD COUNT 5.4 10^3/uL (4.0-10.0)
[2023-12-05 05:51] LABS: ALBUMIN 2.3 G/DL (3.2-5.2); BILIRUBIN,TOTAL 0.4 MG/DL (0.3-1.2); CALCIUM LEVEL 7.9 MG/DL (8.3-10.6); CREATININE FOR GFR 1.04 MG/DL (0.55-1.30); POTASSIUM SERUM 3.9 MMOL/L (3.5-5.1); TOTAL PROTEIN 6.7 G/DL (5.7-8.2)
[2023-12-05 07:43] VITALS: BP 118/58; TEMP 97.8; O2SAT 94
[2023-12-05] MEDS: dilTIAZem 120MG **CD** CAPSULE PO SCH (09:00)
[2023-12-05 11:32] VITALS: BP 114/57; TEMP 97.6; O2SAT 95
[2023-12-05 12:30] VITALS: BP 130/74; TEMP 99.4; O2SAT 100
[2023-12-05 16:41] VITALS: BP 133/69; TEMP 98.8; O2SAT 95
[2023-12-05] MEDS: FUROSEMIDE 40MG/4ML VIAL IV SCH (17:17)
[2023-12-05 19:54] VITALS: BP 114/56; TEMP 98.8; O2SAT 95
[2023-12-06] VITALS: BP 99/66; TEMP 98.5; O2SAT 97
[2023-12-06 03:32] VITALS: BP 114/68; TEMP 98.8; O2SAT 96
[2023-12-06 06:12] LABS: BASO % 0.8 % (0.0-1.0); EOS # 0.5 10^3/uL (0.0-0.5); EOS % 12.7 % (0.0-3.0); HEMATOCRIT 27.7 % (36.0-47.0); LYMPH # 0.6 10^3/uL (1.5-5.0); LYMPH % 15.3 % (24.0-44.0); MEAN CORPUSCULAR HEMOGLOBIN 24.2 pg (27.0-33.0); MEAN CORPUSCULAR HGB CONC 28.9 g/dl (32.0-36.5); MEAN CORPUSCULAR VOLUME 83.9 fl (80.0-96.0); MONO # 0.5 10^3/uL (0.0-0.8); MONO % 12.7 % (2.0-8.0); NEUTROPHILS # 2.2 10^3/uL (1.5-8.5); PLATELET COUNT, AUTOMATED 171 10^3/uL (150-450); WHITE BLOOD COUNT 3.9 10^3/uL (4.0-10.0)
[2023-12-06 06:35] LABS: ALBUMIN 2.4 G/DL (3.2-5.2); ALKALINE PHOSPHATASE 69 U/L (46-116); ALT/SGPT < 9 U/L (7.0-40); AST/SGOT 18 U/L (<34); BILIRUBIN,TOTAL 0.4 MG/DL (0.3-1.2); BLOOD UREA NITROGEN 15 MG/DL (9-23); CALCIUM LEVEL 7.8 MG/DL (8.3-10.6); CARBON DIOXIDE LEVEL 28 MMOL/L (20-31); CHLORIDE LEVEL 107 MMOL/L (98-107); CREATININE FOR GFR 1.06 MG/DL (0.55-1.30); GLOMERULAR FILTRATION RATE 55.7 (>45); GLUCOSE, FASTING 106 MG/DL (74-106); POTASSIUM SERUM 3.5 MMOL/L (3.5-5.1); SODIUM LEVEL 142 MMOL/L (136-145); TOTAL PROTEIN 6.7 G/DL (5.7-8.2)
[2023-12-06] MEDS ORDERED: CARD120C3 PO (07:17)
[2023-12-06] MEDS ORDERED: CEFD1CAP9 PO (07:18)
[2023-12-06 07:31] VITALS: BP 115/57; TEMP 97.2; O2SAT 97
[2023-12-06] MEDS ORDERED: LASI20TA3 PO (08:55)
[2023-12-06 09:20] VITALS: BP 115/57
== END 2023-12-06 12:56 | disposition home or self-care (01) | DRG 871 ==
LOC: M ED 18:02 → EDBD 18:02 → M ED INP 22:09 → M ICU 23:30 → M PCU 12-04 16:02
PROVIDERS: ADMIT Internal Medicine Pulmonary Disease; ATTEND Internal Medicine Pulmonary Disease
PROC: 02HV33Z Insertion of Infusion Device into Superior Vena Cava, Percutaneous Approach (ICD-10-PCS; principal; 2023-12-03)
DX: A41.9 Sepsis, unspecified organism (principal); J18.9 Pneumonia, unspecified organism; R65.21 Severe sepsis with septic shock; J96.21 Acute and chronic respiratory failure with hypoxia; G93.41 Metabolic encephalopathy; I50.33 Acute on chronic diastolic (congestive) heart failure; I21.4 Non-ST elevation (NSTEMI) myocardial infarction; N39.0 Urinary tract infection, site not specified; Z68.43 Body mass index [BMI] 50.0-59.9, adult; L97.419 Non-pressure chronic ulcer of right heel and midfoot with unspecified severity; D64.9 Anemia, unspecified; I87.8 Other specified disorders of veins; I69.328 Other speech and language deficits following cerebral infarction; I89.0 Lymphedema, not elsewhere classified; Z66 Do not resuscitate; E66.01 Morbid (severe) obesity due to excess calories; I11.0 Hypertensive heart disease with heart failure; E78.5 Hyperlipidemia, unspecified; M32.9 Systemic lupus erythematosus, unspecified; Z86.718 Personal history of other venous thrombosis and embolism; Z89.422 Acquired absence of other left toe(s); Z79.01 Long term (current) use of anticoagulants; Z79.899 Other long term (current) drug therapy; Z88.8 Allergy status to other drugs, medicaments and biological substances; Z11.52 Encounter for screening for COVID-19; Z99.81 Dependence on supplemental oxygen

== ENCOUNTER 2023-12-18 14:23 | Inpatient (IN) | payer MEDICARE, OTHER ==
[2023-12-18] VITALS (11 sets, daily range): BP systolic 96–106; BP diastolic 67–78; TEMP 97.1–97.9; O2SAT 100
[~2023-12-18] VITALS: Ht 167.6 cm; Wt 158.0 kg
[~2023-12-18 14:23] MED LIST changes: +CARD120C3 PO; +CEFD1CAP9 PO; +LASI20TA3 PO
[2023-12-18] MEDS ORDERED: ISOVUE-370 76% 100ML VIAL As Ordered ONE (14:57)
[2023-12-18 15:26] LABS: ABG BASE EXCESS 3.1 (-2.0-2.0); ABG HCO3 28.4 MMOL/L (22.0-26.0); ABG O2 SATURATION 95.9 % (95.0-99.0); ABG PARTIAL PRESSURE CO2 47.7 mmHg (35.0-45.0); ABG PARTIAL PRESSURE O2 87.5 mmHg (75.0-100.0); ABG STANDARD HCO3 27.2 MMOL/L. (22.0-26.0); ABG TOTAL CO2 29.9 MMOL/L (23.0-31.0); ABG pH (ARTERIAL) 7.393 UNITS (7.350-7.450)
[2023-12-18 15:49] LABS: VENOUS BASE EXCESS -0.6 (-2.0-2.0); VENOUS HCO3 24.6 MMOL/L (23.0-27.0); VENOUS O2 SATURATION 98.1 % (60.0-80.0); VENOUS PARTIAL PRESSURE CO2 42.5 mmHg (38.0-50.0); VENOUS PARTIAL PRESSURE O2 115.7 mmHg (30.0-50.0); VENOUS TOTAL CO2 25.9 MMOL/L (24.0-28.0)
[2023-12-18 15:55] LABS: BASO % 0.6 % (0.0-1.0); EOS # 0.3 10^3/uL (0.0-0.5); HEMATOCRIT 29.4 % (36.0-47.0); HEMOGLOBIN 8.5 g/dl (12.0-15.5); LYMPH % 19.4 % (24.0-44.0); MEAN CORPUSCULAR HEMOGLOBIN 24.4 pg (27.0-33.0); MEAN CORPUSCULAR HGB CONC 28.9 g/dl (32.0-36.5); MEAN CORPUSCULAR VOLUME 84.5 fl (80.0-96.0); MONO # 0.6 10^3/uL (0.0-0.8); MONO % 12.2 % (2.0-8.0); NEUTROPHILS # 3.2 10^3/uL (1.5-8.5); NEUTROPHILS % 61.4 % (36.0-66.0); PLATELET COUNT, AUTOMATED 211 10^3/uL (150-450); RED BLOOD COUNT 3.48 10^6/uL (4.00-5.40); WHITE BLOOD COUNT 5.2 10^3/uL (4.0-10.0)
[2023-12-18] MEDS: cefTRIAXone SOD 2 GM in D5W MINI-BAG PLUS 50 ML IV ONE (16:00)
[2023-12-18 16:17] LABS: ETHYL ALCOHOL (ETHANOL) < 0.003 % (0.000-0.010)
[2023-12-18 16:18] LABS: SALICYLATE LEVEL < 3.0 MG/DL (<30)
[2023-12-18 16:19] LABS: ALBUMIN 2.8 G/DL (3.2-5.2); ALKALINE PHOSPHATASE 78 U/L (46-116); ALT/SGPT < 9 U/L (7.0-40); AST/SGOT 13 U/L (<34); BILIRUBIN,DIRECT 0.2 MG/DL (<0.4); BILIRUBIN,TOTAL 0.6 MG/DL (0.3-1.2); BLOOD UREA NITROGEN 23 MG/DL (9-23); CALCIUM LEVEL 8.4 MG/DL (8.3-10.6); CARBON DIOXIDE LEVEL 28 MMOL/L (20-31); CHLORIDE LEVEL 105 MMOL/L (98-107); CREATININE FOR GFR 1.04 MG/DL (0.55-1.30); GLUCOSE, FASTING 88 MG/DL (74-106); OSMOLALITY SERUM 308 MOSM/KG (280-301); POTASSIUM SERUM 3.8 MMOL/L (3.5-5.1); SODIUM LEVEL 139 MMOL/L (136-145); TOTAL PROTEIN 7.6 G/DL (5.7-8.2)
[2023-12-18 16:21] LABS: THYROID STIMULATING HORMONE 6.989 uIU/ML (0.55-4.78)
[2023-12-18] MEDS: NS IV ONE (16:35)
[2023-12-18 16:58] LABS: BARBITURATES URINE NEGATIVE (NEGATIVE); COCAINE METABOLITE URINE NEGATIVE (NEGATIVE); METHADONE URINE NEGATIVE (NEGATIVE); OPIATES URINE NEGATIVE (NEGATIVE); PHENCYCLIDINE URINE NEGATIVE (NEGATIVE)
[2023-12-18 16:59] LABS: AMPHETAMINES LEVEL URINE NEGATIVE (NEGATIVE); BENZODIAZEPINES URINE NEGATIVE (NEGATIVE); CANNABINOIDS URINE NEGATIVE (NEGATIVE)
[2023-12-18] MEDS ORDERED: DILT120C78 PO (17:36)
[2023-12-18] MEDS ORDERED: HOME MED LIST COMPLETE! XX SCH (17:40)
[2023-12-18 19:03] LABS: PROCALCITONIN <0.04 ng/ml
[2023-12-18] MEDS: D5W/LR 1,000 ML IV SCH (19:20)
[2023-12-18] MEDS: APIXABAN 5 MG TAB (ELIQUIS) PO SCH (20:34)
[2023-12-18] MEDS: ESCITALOPRAM OXALATE 10 MG TAB (LEXAPRO) PO SCH (20:34)
[2023-12-18] MEDS: HYDROCORTISONE 100MG/2ML VIAL IV SCH (20:34)
[2023-12-18] MEDS: DOXYCYCLINE HYCLATE 100 MG in D5W MINI-BAG PLUS 100 ML IV SCH (20:34)
[2023-12-18] MEDS: MAGNESIUM OXIDE 400MG TAB (MAG-OX) PO SCH (20:34)
[2023-12-18] MEDS: HYDROXYCHLOROQUINE 200 MG TAB PO SCH (20:34)
[2023-12-19] VITALS (38 sets, daily range): BP systolic 98–123; BP diastolic 59–84; PULSE 66; TEMP 97.4–98.3; O2SAT 85–100
[2023-12-19 04:58] LABS: BASO # 0.1 10^3/uL (0.0-0.2); BASO % 1.4 % (0.0-1.0); EOS % 0.6 % (0.0-3.0); HEMATOCRIT 28.4 % (36.0-47.0); LYMPH # 0.4 10^3/uL (1.5-5.0); LYMPH % 11.5 % (24.0-44.0); MEAN CORPUSCULAR HGB CONC 28.2 g/dl (32.0-36.5); MEAN CORPUSCULAR VOLUME 85.3 fl (80.0-96.0); MONO # 0.3 10^3/uL (0.0-0.8); MONO % 7.8 % (2.0-8.0); NEUTROPHILS # 2.7 10^3/uL (1.5-8.5); NEUTROPHILS % 78.4 % (36.0-66.0); PLATELET COUNT, AUTOMATED 216 10^3/uL (150-450); RED BLOOD COUNT 3.33 10^6/uL (4.00-5.40); WHITE BLOOD COUNT 3.5 10^3/uL (4.0-10.0)
[2023-12-19] MEDS: D5W/LR 1,000 ML IV SCH (04:59)
[2023-12-19 05:31] LABS: ALBUMIN 2.7 G/DL (3.2-5.2); ALKALINE PHOSPHATASE 78 U/L (46-116); ALT/SGPT < 9 U/L (7.0-40); AST/SGOT 10 U/L (<34); BILIRUBIN,TOTAL 0.4 MG/DL (0.3-1.2); BLOOD UREA NITROGEN 21 MG/DL (9-23); CALCIUM LEVEL 8.5 MG/DL (8.3-10.6); CARBON DIOXIDE LEVEL 29 MMOL/L (20-31); CHLORIDE LEVEL 107 MMOL/L (98-107); CREATININE FOR GFR 0.99 MG/DL (0.55-1.30); GLOMERULAR FILTRATION RATE > 60.0 (>45); GLUCOSE, FASTING 152 MG/DL (74-106); MAGNESIUM LEVEL 2.2 MG/DL (1.8-2.4); PHOSPHORUS LEVEL 4.9 MG/DL (2.4-5.1); POTASSIUM SERUM 4.6 MMOL/L (3.5-5.1); SODIUM LEVEL 141 MMOL/L (136-145); TOTAL PROTEIN 7.3 G/DL (5.7-8.2)
[2023-12-19] MEDS: dilTIAZem 120MG **CD** CAPSULE PO SCH (09:00)
[2023-12-19] MEDS ORDERED: ENOXAPARIN 40MG/0.4ML SYRINGE (J1650 PER 10MG) SC SCH (09:00)
[2023-12-19] MEDS: FUROSEMIDE 20 MG TAB PO SCH (09:00)
[2023-12-19] MEDS: ATORVASTATIN 20 MG TAB PO SCH (09:00)
[2023-12-19] MEDS ORDERED: PROHANCE 279.3MG/ML 15ML VIAL As Ordered ONE (14:25)
[2023-12-19] MEDS ORDERED: PROHANCE 279.3MG/ML 5ML VIAL As Ordered ONE (14:25)
[2023-12-19] MEDS: PANTOPRAZOLE 40MG VIAL IV SCH (15:50)
[2023-12-19] MEDS: CLOPIDOGREL 300 MG TAB (PLAVIX) PO STA (17:12)
[2023-12-19] MEDS: ASPIRIN 325 MG TAB PO ONE (17:15)
[2023-12-19] MEDS: NOREPINEPHRINE 4MG IN D5 250ML 4 MG in IV 1 EA IV SCH (19:10)
[2023-12-19] MEDS: LEVOTHYROXINE 12.5MCG PER 1/2 TAB (0.0125MG) PO SCH (20:41)
[2023-12-20] MEDS: MORPHINE 2 MG/ML 1ML VIAL IV PRN (01:25)
[2023-12-20 01:43] VITALS: BP 123/81; TEMP 98; O2SAT 96
[2023-12-20] MEDS: ASPIRIN 81MG CHEW TABLET PO SCH (01:44)
[2023-12-20] MEDS: CLOPIDOGREL 75 MG TAB PO SCH (01:45)
[2023-12-20] MEDS: SCOPOLAMINE 1MG TRANSDERMAL PATCH TOP PRN (14:56)
[2023-12-20] MEDS: LORazepam 2 MG/ML 1ML VIAL IV PRN (14:56)
[2023-12-22] MEDS: MORPHINE 2 MG/ML 1ML VIAL IV PRN (15:00)
[2023-12-25] MEDS ORDERED: ONDANSETRON 4MG ORAL DISINTEGRATING TAB PO PRN (11:15)
[2023-12-25] MEDS ORDERED: ACETAMINOPHEN 650MG SUPP PR PRN (11:15)
[2023-12-25] MEDS: LORazepam 1 MG TAB SL PRN ×2 (11:32→17:28)
[2023-12-25] MEDS: MORPHINE 10MG/0.5ML ORAL CONCENTRATE SOLUTION U/D SL PRN ×2 (11:32→17:28)
[2023-12-27] MEDS: ATROPINE SULFATE 1% OPHTH SOLN 2ML BTL SL PRN (16:06)
[2023-12-28] MEDS: HALOPERIDOL LACTATE 5MG/ML VIAL IM ONE (11:43)
[2023-12-28] MEDS: MORPHINE 10MG/0.5ML ORAL CONCENTRATE SOLUTION U/D SL PRN (14:03)
[2023-12-28] MEDS ORDERED: SCOPOLAMINE 1MG TRANSDERMAL PATCH TOP SCH (15:00)
== END 2023-12-28 17:35 | disposition expired | DRG 64 ==
LOC: M ED 14:23 → EDBD 14:23 → M ED INP 17:31 → M ICU 20:20 → M MSPAV 12-20 03:03
PROVIDERS: ADMIT Internal Medicine Pulmonary Disease; ATTEND Preventive Medicine Undersea and Hyperbaric Medicine
DX: I63.9 Cerebral infarction, unspecified (principal); G93.41 Metabolic encephalopathy; R40.2A Nontraumatic coma due to underlying condition; R53.2 Functional quadriplegia; E43 Unspecified severe protein-calorie malnutrition; Z68.43 Body mass index [BMI] 50.0-59.9, adult; Z66 Do not resuscitate; E78.5 Hyperlipidemia, unspecified; I89.0 Lymphedema, not elsewhere classified; I95.9 Hypotension, unspecified; I10 Essential (primary) hypertension; I69.328 Other speech and language deficits following cerebral infarction; Z86.718 Personal history of other venous thrombosis and embolism; M32.9 Systemic lupus erythematosus, unspecified; E66.9 Obesity, unspecified; Z79.01 Long term (current) use of anticoagulants; Z79.899 Other long term (current) drug therapy; Z88.8 Allergy status to other drugs, medicaments and biological substances